=== PATIENT | female | born 1955 | race Caucasian/White ===

== ENCOUNTER → 2020-01-02 | Outpatient (CLI) | payer BC ==
[2020-01-02 12:22] LABS: BASOPHILS % 0.5 % (0.0-2.0); EOSINOPHILS % 3.2 % (0.0-5.0); HEMATOCRIT. 37.1 % (36.0-48.0); HEMOGLOBIN. 12.7 g/dL (12.0-16.0); LYMPHOCYTES % 14.1 % (20.0-50.0); MEAN CORPUSCULAR HEMOGLOBIN 27.9 pg (28.0-32.0); MEAN CORPUSCULAR VOLUME 81.4 fL (81.0-99.0); MEAN PLATELET VOLUME 7.5 fl (7.4-10.4); MONOCYTES % 6.6 % (2.0-8.0); NEUTROPHILS % 75.6 % (40.0-76.0); PLATELET 147 x1000/uL (130-400); RED BLOOD CELL COUNT 4.56 mill/uL (4.2-5.4); RED CELL DISTRIBUTION WIDTH 14.5 % (11.6-14.6)
[2020-01-02 12:30] LABS: CHLORIDE 107 mEq/L (98-107)
[2020-01-02 12:33] LABS: PARTIAL THROMBOPLASTIN TIME 33.7 sec (23.4-31.0); PROTHROMBIN TIME 10.9 sec (9.6-11.0)
[2020-01-02 12:34] LABS: CLARITY URINE CLEAR (CLEAR); COLOR URINE DARK YELLOW (YELLOW); KETONES URINE NEGATIVE (NEGATIVE); LEUKOCYTE ESTERASE URINE 2+ (NEGATIVE); NITRITE URINE NEGATIVE (NEGATIVE); OCCULT BLOOD URINE NEGATIVE (NEGATIVE); PH URINE 5.5 (4.5-8.0); PROTEIN URINE NEGATIVE (NEGATIVE); SPECIFIC GRAVITY URINE 1.029 (1.005-1.030)
== END | disposition home or self-care (01) ==
LOC: PVL 11:24
PROVIDERS: ATTEND Thoracic Surgery (Cardiothoracic Vascular Surgery)
DX: Z20.828 Contact with and (suspected) exposure to other viral communicable diseases (principal); I34.0 Nonrheumatic mitral (valve) insufficiency
CPT/HCPCS: 36415; 71045; 80048; 81003; 83735; 85025; 85610; 85730; 86850; 86900; 86901; 87086; 87426; 93005; 93880; 93970; C9803; U0003

== ENCOUNTER 2020-01-06 05:47 | Inpatient (IN) | payer BC ==
[~2020-01-06] VITALS: Ht 157.5 cm; Wt 74.6 kg
[2020-01-06] VITALS (56 sets, daily range): BP systolic 90–138; BP diastolic 43–75
[~2020-01-06 05:47] MED LIST: CHOL100022 PO; FERR325T6 PO; METF-416 PO; METO100T16 PO; MULT-1146 PO; PROT40 PO; RIVA20TA PO; VITAMIN B12 PO
[2020-01-06] MEDS ORDERED: CEFAZOLIN 2,000 MG in DEXT 5% WATER 100 ML IV SCH (06:00)
[2020-01-06] MEDS ORDERED: NICARDIPINE 50 MG in NS 250 ML IV SCH (06:00)
[2020-01-06] MEDS ORDERED: DEL NIDO ELECTROLYTE-S(PH 7.4) 1,000 ML IV SCH ×2 (06:00)
[2020-01-06] MEDS ORDERED: NOREPINEPHRINE 8 MG in DEXT 5% WATER 242 ML IV SCH (06:00)
[2020-01-06] MEDS ORDERED: EPINEPHRINE 5 MG in DEXT 5% WATER 245 ML IV SCH (06:00)
[2020-01-06] MEDS ORDERED: INSULIN REGULAR (DRIP) 100 UNITS in SODIUM CHLORIDE 0.9% 99 ML IV SCH (06:00)
[2020-01-06] MEDS ORDERED: AMINOCAPROIC ACID 5,000 MG in SODIUM CHLORIDE 0.9% 230 ML IV SCH (06:15)
[2020-01-06] MEDS ORDERED: AMINOCAPROIC ACID 5,000 MG in SODIUM CHLORIDE 0.9% 230 ML IV ONE (06:15)
[2020-01-06] MEDS ORDERED: BACITRACIN 15GM TUBE TOP ONE (06:20)
[2020-01-06] MEDS ORDERED: DOPAMINE 400MG/250ML PREMIX 250 ML IV ONE (06:20)
[2020-01-06] MEDS ORDERED: THROMBIN (BOVINE) 5000 UNITS/VIAL TOP ONE (06:21)
[2020-01-06] MEDS ORDERED: HEPARIN 1000 UNITS/ML 10ML ONE ×4 (06:21→08:09)
[2020-01-06] MEDS ORDERED: BACITRACIN 50,000 UNITS/VIAL ONE (06:21)
[2020-01-06] MEDS ORDERED: PROPOFOL 10MG/ML 100ML 100 ML IV ONE (06:44)
[2020-01-06] MEDS ORDERED: ROCURONIUM BROMIDE 10MG/ML VIAL 5ML IV ONE (06:44)
[2020-01-06] MEDS ORDERED: CEFAZOLIN SODIUM 1000MG/VIAL ONE (07:33)
[2020-01-06] MEDS ORDERED: HYDROMORPHONE HCL/PF 2MG/ML (OR) ONE (07:46)
[2020-01-06] MEDS ORDERED: PHENYLEPHRINE HCL 10 MG/ML 1ML (IV VIAL) IV ONE (08:00)
[2020-01-06] MEDS ORDERED: MAGNESIUM SULFATE 5GM/10ML VIAL IV ONE ×2 (08:00→08:12)
[2020-01-06] MEDS ORDERED: SODIUM BICARBONATE 8.4% 1 MEQ/ML 50ML SYR IV ONE (08:00)
[2020-01-06] MEDS ORDERED: CALCIUM CHLORIDE 1GM/10ML SYR IV ONE ×2 (08:00→10:05)
[2020-01-06] MEDS ORDERED: AMINOCAPROIC ACID 250 MG/ML 20ML VIAL ONE (08:00)
[2020-01-06] MEDS ORDERED: MANNITOL 20% (20GM/100ML) BAG 500ML PREMIX IV ONE (08:00)
[2020-01-06] MEDS ORDERED: LIDOCAINE HCL 2% 5ML SYRINGE IV ONE (08:00)
[2020-01-06] MEDS ORDERED: ALBUMIN HUMAN 25GM/100ML (25%) IV ONE (08:00)
[2020-01-06] MEDS ORDERED: POTASSIUM CHLORIDE 40MEQ/20ML INJ IV ONE (08:12)
[2020-01-06] MEDS ORDERED: PROTAMINE SULFATE 10MG/ML VIAL 25ML IV ONE (10:06)
[2020-01-06] MEDS ORDERED: FUROSEMIDE 100MG/10ML VIAL ONE (10:30)
[2020-01-06] MEDS ORDERED: BUPIVACAINE HCL 0.5% (5MG/ML) 50ML ONE (10:41)
[2020-01-06] MEDS ORDERED: NEOSTIGMINE METHYLSULFATE 1MG/ML 10 ML VIAL ONE (11:09)
[2020-01-06] MEDS ORDERED: KCL 10MEQ/50ML PREMIX 150 ML IV PRN (11:15)
[2020-01-06] MEDS ORDERED: KCL 10MEQ/50ML PREMIX 200 ML IV PRN (11:15)
[2020-01-06] MEDS ORDERED: MAGNESIUM SULFATE 3 GM in DEXT 5% WATER 100 ML IV PRN (11:30)
[2020-01-06] MEDS ORDERED: ALBUMIN HUMAN 25GM/100ML (25%) IV PRN (11:30)
[2020-01-06] MEDS ORDERED: CALCIUM CHLORIDE 3,000 MG in DEXT 5% WATER 250 ML IV PRN (11:30)
[2020-01-06] MEDS ORDERED: SODIUM CHLORIDE 0.9% 500 ML IV PRN (11:30)
[2020-01-06] MEDS ORDERED: ALBUMIN HUMAN 12.5G/250ML (5%) IV PRN (11:30)
[2020-01-06] MEDS ORDERED: MAGNESIUM 1 G PREMIX 100 ML IV PRN (11:30)
[2020-01-06] MEDS ORDERED: EPINEPHRINE 5 MG in DEXT 5% WATER 245 ML IV PRN (11:30)
[2020-01-06] MEDS ORDERED: MAGNESIUM 2 G PREMIX 50 ML IV PRN (11:30)
[2020-01-06] MEDS ORDERED: CEFAZOLIN 1000MG PREMIX 50 ML IV SCH (11:30)
[2020-01-06] MEDS ORDERED: NICARDIPINE 40MG/200ML PREMIX 200 ML IV ONE (11:34)
[2020-01-06 12:01] LABS: BG BASE EXCESS -2.3 mmol/L (-2.0-2.0); BG CARBOXYHEMOGLOBIN 0.3 % (0.5-1.5); BG DEOXYHEMOGLOBIN 1.9 % (0.0-5.0); BG HCO3 ACT 25.4 mmol/L (22.0-26.0); BG METHEMOGLOBIN 0.3 % (0.0-1.5); BG OXYGEN SATURATION 98.1 % (92.0-98.5); BG OXYHEMOGLOBIN 97.5 % (94.0-97.0); BG PCO2 56.6 mmHg (35.0-45.0); BG PO2 137.3 mmHg (75.0-100.0); BG SAMPLE SITE ALINE; BG TOTAL HEMOGLOBIN 12.6 g/dL (12.0-18.0); BG VENT MODE MASK - NRB
[2020-01-06 12:07] LABS: HEMATOCRIT. 34.7 % (36.0-48.0); HEMOGLOBIN. 11.9 g/dL (12.0-16.0); MEAN CORPUSCULAR HEMOGLOBIN 27.7 pg (28.0-32.0); MEAN PLATELET VOLUME 7.6 fl (7.4-10.4); PLATELET 185 x1000/uL (130-400); RED BLOOD CELL COUNT 4.28 mill/uL (4.2-5.4)
[2020-01-06] MEDS: DOPAMINE 400MG/250ML PREMIX 250 ML IV PRN (12:24)
[2020-01-06] MEDS: DEXT 5%/0.45% NACL 1000ML 1,000 ML IV SCH (12:25)
[2020-01-06 12:55] LABS: PHOSPHORUS 3.8 mg/dL (2.5-4.9)
[2020-01-06] MEDS: IPRATROPIUM/ALBUTEROL 0.5-3(2.5)MG/3ML NEB HHN SCH ×3 (13:31→21:18)
[2020-01-06] MEDS: CEFAZOLIN 1000MG PREMIX 50 ML IV SCH ×2 (13:32→21:20)
[2020-01-06 14:33] LABS: PLATELET ESTIMATE NORMAL
[2020-01-06] MEDS ORDERED: POLYVINYL ALCOHOL OPHTH DROPS 15ML LEFTEYE PRN (15:00)
[2020-01-06] MEDS: OXYCODONE HCL/ACETAMINOPHEN 5/325MG TABLET PO PRN (15:19)
[2020-01-06] MEDS ORDERED: IPRATROPIUM/ALBUTEROL 0.5-3(2.5)MG/3ML NEB HHN PRN (15:45)
[2020-01-06] MEDS: ONDANSETRON HCL 4MG/2ML INJ IV PRN ×2 (16:02→19:57)
[2020-01-06] MEDS: DOCUSATE SODIUM 100MG CAPSULE PO SCH (17:00)
[2020-01-06] MEDS: BACITRACIN 15GM TUBE TOP SCH (17:00)
[2020-01-06] MEDS: KETOROLAC 30MG/ML VIAL IV PRN ×2 (17:30→19:58)
[2020-01-06 17:38] LABS: BG BASE EXCESS 0.9 mmol/L (-2.0-2.0); BG CARBOXYHEMOGLOBIN 0.2 % (0.5-1.5); BG HCO3 ACT 25.7 mmol/L (22.0-26.0); BG METHEMOGLOBIN 0.3 % (0.0-1.5); BG OXYHEMOGLOBIN 97.5 % (94.0-97.0); BG PCO2 41.5 mmHg (35.0-45.0); BG PH 7.409 (7.350-7.450); BG PO2 115.8 mmHg (75.0-100.0); BG SAMPLE SITE ALINE; BG TOTAL HEMOGLOBIN 12.1 g/dL (12.0-18.0); BG VENT MODE NASAL CANNULA
[2020-01-06 17:45] LABS: HEMATOCRIT 33.9 % (36.0-48.0); HEMOGLOBIN 11.6 g/dL (12.0-16.0); MEAN CORPUSCULAR HEMOGLOBIN 27.6 pg (28.0-32.0); MEAN CORPUSCULAR VOLUME 80.8 fL (81.0-99.0); PLATELET 159 x1000/uL (130-400); RED BLOOD CELL COUNT 4.19 mill/uL (4.2-5.4); RED CELL DISTRIBUTION WIDTH 14.1 % (11.6-14.6)
[2020-01-06 18:20] LABS: CHLORIDE 107 mEq/L (98-107)
[2020-01-06 18:29] LABS: PHOSPHORUS 2.7 mg/dL (2.5-4.9)
[2020-01-06] MEDS ORDERED: INSULIN REGULAR (DRIP) 100 UNITS in SODIUM CHLORIDE 0.9% 99 ML IV PRN (18:45)
[2020-01-06] MEDS ORDERED: DEXTROSE 50% WATER 50ML SYRINGE IV PRN ×2 (18:45)
[2020-01-06] MEDS: KCL 10MEQ/50ML PREMIX 100 ML IV PRN ×2 (18:51→20:20)
[2020-01-06] MEDS ORDERED: INSULIN REGULAR (DRIP) 100 UNITS in SODIUM CHLORIDE 0.9% 100 ML IV SCH (19:00)
[2020-01-06] MEDS: BLOOD SUGAR DIAGNOSTIC STRIP TEST SCH ×5 (19:09→23:00)
[2020-01-07] VITALS (61 sets, daily range): BP systolic 92–169; BP diastolic 34–72
[2020-01-07] MEDS: IPRATROPIUM/ALBUTEROL 0.5-3(2.5)MG/3ML NEB HHN SCH ×4 (00:26→20:54)
[2020-01-07 00:50] LABS: HEMATOCRIT. 28.4 % (36.0-48.0); HEMOGLOBIN. 9.8 g/dL (12.0-16.0); MEAN CORPUSCULAR HEMOGLOBIN 27.8 pg (28.0-32.0); MEAN CORPUSCULAR VOLUME 80.6 fL (81.0-99.0); MEAN PLATELET VOLUME 7.9 fl (7.4-10.4); PLATELET 130 x1000/uL (130-400); RED BLOOD CELL COUNT 3.53 mill/uL (4.2-5.4); RED CELL DISTRIBUTION WIDTH 14.1 % (11.6-14.6)
[2020-01-07 00:57] LABS: CHLORIDE 107 mEq/L (98-107)
[2020-01-07] MEDS: OXYCODONE HCL/ACETAMINOPHEN 5/325MG TABLET PO PRN ×4 (00:58→18:34)
[2020-01-07 01:03] LABS: PHOSPHORUS 4.4 mg/dL (2.5-4.9)
[2020-01-07] MEDS: BLOOD SUGAR DIAGNOSTIC STRIP TEST SCH ×15 (01:03→20:53)
[2020-01-07] MEDS: KCL 10MEQ/50ML PREMIX 100 ML IV PRN ×4 (01:26→08:10)
[2020-01-07 01:53] LABS: PLATELET ESTIMATE NORMAL
[2020-01-07] MEDS ORDERED: KETOROLAC 15MG/ML VIAL IV SCH ×3 (02:45→09:00)
[2020-01-07] MEDS: DOPAMINE 400MG/250ML PREMIX 250 ML IV PRN (04:20)
[2020-01-07] MEDS: ONDANSETRON HCL 4MG/2ML INJ IV PRN ×4 (04:32→18:35)
[2020-01-07] MEDS: CEFAZOLIN 1000MG PREMIX 50 ML IV SCH ×2 (05:06→14:12)
[2020-01-07 05:42] LABS: HEMATOCRIT. 26.5 % (36.0-48.0); HEMOGLOBIN. 9.1 g/dL (12.0-16.0); MEAN CORPUSCULAR HEMOGLOBIN 27.8 pg (28.0-32.0); MEAN CORPUSCULAR VOLUME 81.5 fL (81.0-99.0); MEAN PLATELET VOLUME 7.9 fl (7.4-10.4); PLATELET 110 x1000/uL (130-400); RED BLOOD CELL COUNT 3.25 mill/uL (4.2-5.4)
[2020-01-07 08:26] LABS: BG BASE EXCESS -1.5 mmol/L (-2.0-2.0); BG CARBOXYHEMOGLOBIN 0.3 % (0.5-1.5); BG DEOXYHEMOGLOBIN 4.5 % (0.0-5.0); BG FRACTION INSPIRED OXYGEN 21; BG HCO3 ACT 23.7 mmol/L (22.0-26.0); BG METHEMOGLOBIN 0.3 % (0.0-1.5); BG OXYGEN SATURATION 95.5 % (92.0-98.5); BG OXYHEMOGLOBIN 94.9 % (94.0-97.0); BG PH 7.369 (7.350-7.450); BG PO2 80.3 mmHg (75.0-100.0); BG SAMPLE SITE ALINE; BG TOTAL HEMOGLOBIN 9.5 g/dL (12.0-18.0); BG VENT MODE ROOM AIR
[2020-01-07 08:29] LABS: PHOSPHORUS 6.2 mg/dL (2.5-4.9)
[2020-01-07] MEDS: BACITRACIN 15GM TUBE TOP SCH ×2 (09:00→17:00)
[2020-01-07] MEDS: FAMOTIDINE 20MG/2ML VIAL IV SCH (09:45)
[2020-01-07] MEDS: DOCUSATE SODIUM 100MG CAPSULE PO SCH ×2 (09:45→17:10)
[2020-01-07] MEDS: DEXT 5%/0.45% NACL 1000ML 1,000 ML IV SCH (12:15)
[2020-01-07] MEDS ORDERED: DEXTROSE 50% WATER 50ML SYRINGE IV PRN (12:45)
[2020-01-07] MEDS ORDERED: INSULIN GLARGINE UD 100 UNITS/ML SYR SUBCUT SCH (13:00)
[2020-01-07] MEDS: INSULIN LISPRO 100 UNITS/ML SUBCUT SCH ×3 (13:14→20:53)
[2020-01-07 14:12] LABS: PLATELET ESTIMATE SLIGHTLY DECREASED
[2020-01-08] VITALS (12 sets, daily range): BP systolic 88–130; BP diastolic 49–77
[2020-01-08] MEDS: IPRATROPIUM/ALBUTEROL 0.5-3(2.5)MG/3ML NEB HHN SCH ×7 (00:28→23:35)
[2020-01-08] MEDS: ONDANSETRON HCL 4MG/2ML INJ IV PRN ×2 (01:39→07:00)
[2020-01-08] MEDS: OXYCODONE HCL/ACETAMINOPHEN 5/325MG TABLET PO PRN ×4 (01:40→19:59)
[2020-01-08] MEDS: BLOOD SUGAR DIAGNOSTIC STRIP TEST SCH ×4 (05:58→21:00)
[2020-01-08] MEDS: INSULIN LISPRO 100 UNITS/ML SUBCUT SCH ×4 (06:21→21:00)
[2020-01-08] MEDS: DOCUSATE SODIUM 100MG CAPSULE PO SCH ×2 (08:47→16:13)
[2020-01-08] MEDS: FAMOTIDINE 20MG/2ML VIAL IV SCH (08:47)
[2020-01-08] MEDS: INSULIN GLARGINE UD 100 UNITS/ML SYR SUBCUT SCH (09:04)
[2020-01-08 09:07] LABS: BASOPHILS % 0.4 % (0.0-2.0); HEMOGLOBIN. 9.2 g/dL (12.0-16.0); LYMPHOCYTES % 9.8 % (20.0-50.0); MEAN CORPUSCULAR HEMOGLOBIN 27.9 pg (28.0-32.0); MEAN CORPUSCULAR VOLUME 82.1 fL (81.0-99.0); MEAN PLATELET VOLUME 8.1 fl (7.4-10.4); MONOCYTES % 6.2 % (2.0-8.0); NEUTROPHILS % 80.6 % (40.0-76.0); PLATELET 124 x1000/uL (130-400); RED BLOOD CELL COUNT 3.29 mill/uL (4.2-5.4); RED CELL DISTRIBUTION WIDTH 14.2 % (11.6-14.6)
[2020-01-08] MEDS: RIVAROXABAN 10 MG TABLET PO SCH (16:37)
[2020-01-08] MEDS ORDERED: BACITRACIN 15GM TUBE TOP SCH (17:00)
[2020-01-09] VITALS (12 sets, daily range): BP systolic 101–140; BP diastolic 49–83
[2020-01-09] MEDS: OXYCODONE HCL/ACETAMINOPHEN 5/325MG TABLET PO PRN ×2 (03:33→12:01)
[2020-01-09] MEDS: IPRATROPIUM/ALBUTEROL 0.5-3(2.5)MG/3ML NEB HHN SCH ×6 (04:19→23:55)
[2020-01-09] MEDS: BLOOD SUGAR DIAGNOSTIC STRIP TEST SCH ×4 (06:23→20:20)
[2020-01-09 07:14] LABS: BASOPHILS % 0.8 % (0.0-2.0); EOSINOPHILS % 5.3 % (0.0-5.0); HEMATOCRIT. 25.5 % (36.0-48.0); HEMOGLOBIN. 8.7 g/dL (12.0-16.0); LYMPHOCYTES % 16.7 % (20.0-50.0); MEAN CORPUSCULAR HEMOGLOBIN 27.6 pg (28.0-32.0); NEUTROPHILS % 69.2 % (40.0-76.0); PLATELET 109 x1000/uL (130-400); RED BLOOD CELL COUNT 3.15 mill/uL (4.2-5.4); RED CELL DISTRIBUTION WIDTH 13.9 % (11.6-14.6)
[2020-01-09] MEDS: INSULIN LISPRO 100 UNITS/ML SUBCUT SCH ×4 (07:16→20:20)
[2020-01-09 08:00] LABS: CHLORIDE 104 mEq/L (98-107)
[2020-01-09] MEDS ORDERED: FUROSEMIDE 40MG/4ML VIAL IVP NR (09:00)
[2020-01-09] MEDS ORDERED: ASPIRIN 81MG TABLET PO SCH (09:00)
[2020-01-09] MEDS ORDERED: MAGNESIUM 2 G PREMIX 50 ML IV NR (09:00)
[2020-01-09] MEDS: DOCUSATE SODIUM 100MG CAPSULE PO SCH ×2 (09:30→17:35)
[2020-01-09] MEDS: FAMOTIDINE 20MG/2ML VIAL IV SCH (09:30)
[2020-01-09] MEDS: FUROSEMIDE 40MG TABLET PO SCH (09:31)
[2020-01-09] MEDS: INSULIN GLARGINE UD 100 UNITS/ML SYR SUBCUT SCH (09:34)
[2020-01-09] MEDS ORDERED: METOPROLOL TARTRATE 25MG TABLET PO NR (14:15)
[2020-01-09] MEDS: POLYETHYLENE GLYCOL 3350 (17GM) 1 DOSE PACK PO SCH (14:31)
[2020-01-09] MEDS: METOPROLOL TARTRATE 25MG TABLET PO SCH ×2 (14:32→17:36)
[2020-01-09] MEDS: RIVAROXABAN 10 MG TABLET PO SCH (17:35)
[2020-01-09] MEDS: IBUPROFEN 400MG TABLET PO PRN (20:19)
[2020-01-10] VITALS (13 sets, daily range): BP systolic 87–148; BP diastolic 57–82
[2020-01-10] MEDS: IPRATROPIUM/ALBUTEROL 0.5-3(2.5)MG/3ML NEB HHN SCH ×5 (04:20→21:04)
[2020-01-10] MEDS: OXYCODONE HCL/ACETAMINOPHEN 5/325MG TABLET PO PRN (04:44)
[2020-01-10] MEDS: BLOOD SUGAR DIAGNOSTIC STRIP TEST SCH ×4 (06:31→20:45)
[2020-01-10] MEDS: INSULIN LISPRO 100 UNITS/ML SUBCUT SCH ×4 (07:20→20:49)
[2020-01-10] MEDS ORDERED: BISACODYL 10MG SUPP PR PRN (09:00)
[2020-01-10] MEDS: FAMOTIDINE 20MG/2ML VIAL IV SCH (09:55)
[2020-01-10] MEDS: LACTULOSE 20G/30ML UDC PO SCH ×3 (09:56→16:44)
[2020-01-10] MEDS: POLYETHYLENE GLYCOL 3350 (17GM) 1 DOSE PACK PO SCH (09:58)
[2020-01-10] MEDS: FUROSEMIDE 40MG TABLET PO SCH (09:58)
[2020-01-10] MEDS: DOCUSATE SODIUM 100MG CAPSULE PO SCH ×2 (09:58→16:44)
[2020-01-10] MEDS: METOPROLOL TARTRATE 25MG TABLET PO SCH ×2 (09:58→16:45)
[2020-01-10] MEDS: INSULIN GLARGINE UD 100 UNITS/ML SYR SUBCUT SCH (10:00)
[2020-01-10] MEDS ORDERED: MAGNESIUM 2 G PREMIX 50 ML IV SCH (12:00)
[2020-01-10] MEDS: RIVAROXABAN 10 MG TABLET PO SCH (16:44)
[2020-01-10] MEDS: IBUPROFEN 400MG TABLET PO PRN ×2 (17:54→22:57)
[2020-01-11] VITALS (8 sets, daily range): BP systolic 78–121; BP diastolic 60–72
[2020-01-11] MEDS: IPRATROPIUM/ALBUTEROL 0.5-3(2.5)MG/3ML NEB HHN SCH ×4 (00:55→13:04)
[2020-01-11] MEDS: IBUPROFEN 400MG TABLET PO PRN ×2 (05:04→10:41)
[2020-01-11] MEDS: BLOOD SUGAR DIAGNOSTIC STRIP TEST SCH ×2 (06:06→11:09)
[2020-01-11 06:52] LABS: BASOPHILS % 0.6 % (0.0-2.0); EOSINOPHILS % 5.9 % (0.0-5.0); HEMATOCRIT. 25.4 % (36.0-48.0); HEMOGLOBIN. 8.8 g/dL (12.0-16.0); LYMPHOCYTES % 24.4 % (20.0-50.0); MEAN CORPUSCULAR HEMOGLOBIN 28.1 pg (28.0-32.0); MEAN CORPUSCULAR VOLUME 81.1 fL (81.0-99.0); MEAN PLATELET VOLUME 7.9 fl (7.4-10.4); MONOCYTES % 9.5 % (2.0-8.0); NEUTROPHILS % 59.6 % (40.0-76.0); PLATELET 160 x1000/uL (130-400); RED BLOOD CELL COUNT 3.13 mill/uL (4.2-5.4); RED CELL DISTRIBUTION WIDTH 13.5 % (11.6-14.6)
[2020-01-11] MEDS: INSULIN LISPRO 100 UNITS/ML SUBCUT SCH ×2 (07:14→12:20)
[2020-01-11] MEDS: FAMOTIDINE 20MG/2ML VIAL IV SCH (08:25)
[2020-01-11] MEDS: FUROSEMIDE 40MG TABLET PO SCH (08:25)
[2020-01-11] MEDS: DOCUSATE SODIUM 100MG CAPSULE PO SCH (08:25)
[2020-01-11] MEDS: METOPROLOL TARTRATE 25MG TABLET PO SCH (08:26)
[2020-01-11] MEDS: POLYETHYLENE GLYCOL 3350 (17GM) 1 DOSE PACK PO SCH (08:26)
[2020-01-11] MEDS: INSULIN GLARGINE UD 100 UNITS/ML SYR SUBCUT SCH (10:42)
[2020-01-11] MEDS ORDERED: POTASSIUM CHLORIDE 20MEQ TABLET SR PO SCH (11:45)
== END 2020-01-11 14:45 | disposition home health service (06) | DRG 219 ==
LOC: OR 05:47 → CVICU 05:48 → EEVIPCON 05:48 → EDUNIT# 07:00 → 3WST 01-07 17:56
PROVIDERS: ADMIT Internal Medicine; ATTEND Thoracic Surgery (Cardiothoracic Vascular Surgery)
PROC: 02RG08Z Replacement of Mitral Valve with Zooplastic Tissue, Open Approach (ICD-10-PCS; principal; 2020-01-06)
PROC: 025 Heart and Great Vessels, Destruction (ICD-10-PCS; 2020-01-06)
PROC: 5A1221Z Performance of Cardiac Output, Continuous (ICD-10-PCS; 2020-01-06)
PROC: 02B70ZK Excision of Left Atrial Appendage, Open Approach (ICD-10-PCS; 2020-01-06)
PROC: B24BZZ4 Ultrasonography of Heart with Aorta, Transesophageal (ICD-10-PCS; 2020-01-06)
DX: I44.0 Atrioventricular block, first degree (principal); J96.00 Acute respiratory failure, unspecified whether with hypoxia or hypercapnia; E87.2 Acidosis; J90 Pleural effusion, not elsewhere classified; I05.0 Rheumatic mitral stenosis; I48.0 Paroxysmal atrial fibrillation; E83.41 Hypermagnesemia; I27.21 Secondary pulmonary arterial hypertension; I51.3 Intracardiac thrombosis, not elsewhere classified; D64.9 Anemia, unspecified; R26.9 Unspecified abnormalities of gait and mobility; R73.9 Hyperglycemia, unspecified; D69.6 Thrombocytopenia, unspecified; Z88.5 Allergy status to narcotic agent; Z98.84 Bariatric surgery status
CPT/HCPCS: 36415; 36600; 71045; 73706; 80048; 80051; 80053; 82330; 82375; 82805; 82962; 83036; 83735; 84100; 84132; 85025; 85027; 85347; 86850; 86900; 86920; 87070; 87075; 88305; 93005; 93306; 94640; 97110; 97116; 97162; 97166; 97530; 97535; C1729; C1751; C1758; J0690; J1170; J1265; J1644; J1815; J1885; J1940; J2370; J2405; J2704; J2710; J2720; J3475; J3480; J3490; J7030; J7040; J7050; J7060; L3908; P9047

== ENCOUNTER 2022-11-06 15:55 | Inpatient (IN) | payer BC ==
[~2022-11-06] VITALS: Ht 157.5 cm; Wt 100.3 kg
[~2022-11-06 15:55] MED LIST changes: -CHOL100022 PO; +FURO-151 PO; +LOSA25TA26 PO; +METF-874 PO; +OXYC-100 PO; +POTA-354 PO; +RIVA10TA PO; -RIVA20TA PO
[2022-11-06] MEDS ORDERED: CLONIDINE 0.1MG TABLET PO PRN (19:45)
[2022-11-06] MEDS ORDERED: MAGNESIUM/ALUMINUM HYDROXIDE/SIMETHICONE 30ML UDC PO PRN (19:45)
[2022-11-06] MEDS ORDERED: DOCUSATE SODIUM 100MG CAPSULE PO PRN (19:45)
[2022-11-06] MEDS ORDERED: NITROGLYCERIN 0.4MG TABLET SL SL PRN (19:45)
[2022-11-06] MEDS ORDERED: GUAIFENESIN 200MG/10ML SUGAR FREE UDC PO PRN (19:45)
[2022-11-06] MEDS ORDERED: ONDANSETRON HCL 4MG/2ML INJ IV PRN (19:45)
[2022-11-06] MEDS ORDERED: METOPROLOL TARTRATE 25MG TABLET PO SCH (19:45)
[2022-11-06 21:00] VITALS: BP 122/73; PULSE 132; RESP 18; TEMP 98
[2022-11-06] MEDS: PANTOPRAZOLE SODIUM 40 MG/VIAL IV SCH (21:55)
[2022-11-06] MEDS: METOPROLOL TARTRATE 100MG TABLET PO SCH (21:56)
[2022-11-06] MEDS: ENOXAPARIN 100MG/ML SYR SUBCUT NR ×2 (21:59→22:00)
[2022-11-06 22:24] VITALS: BP 122/73; PULSE 132; RESP 18; TEMP 98
[2022-11-06] MEDS: TEMAZEPAM 15MG CAPSULE PO PRN (23:23)
[2022-11-06 23:45] LABS: INR 1.1; PROTHROMBIN TIME 11.4 sec (9.6-11.0)
[2022-11-07] VITALS: BP 107/68; PULSE 100; RESP 18; TEMP 100.2
[2022-11-07] MEDS ORDERED: IPRATROPIUM BROMIDE (0.02%) 0.5MG/2.5ML NEB HHN PRN (00:15)
[2022-11-07 04:00] VITALS: BP 124/77; PULSE 95; RESP 20; TEMP 97.8
[2022-11-07] MEDS ORDERED: PANT40SU PO (05:37)
[2022-11-07] MEDS ORDERED: ASPI-1497 PO (05:37)
[2022-11-07] MEDS ORDERED: DULA0.75 SQ (05:37)
[2022-11-07 05:58] LABS: BASOPHILS % 0.5 % (0.0-2.0); EOSINOPHILS % 1.8 % (0.0-5.0); HEMATOCRIT. 31.9 % (36.0-48.0); HEMOGLOBIN. 10.3 g/dL (12.0-16.0); LYMPHOCYTES % 25.9 % (20.0-50.0); MEAN CORPUSCULAR HEMOGLOBIN 24.6 pg (28.0-32.0); MEAN PLATELET VOLUME 8.3 fl (7.4-10.4); MONOCYTES % 8.7 % (2.0-8.0); NEUTROPHILS % 63.1 % (40.0-76.0); PLATELET 227 x1000/uL (130-400); RED CELL DISTRIBUTION WIDTH 15.6 % (11.6-14.6)
[2022-11-07 07:00] LABS: CHLORIDE 110 mEq/L (98-107)
[2022-11-07] MEDS: ENOXAPARIN 100MG/ML SYR SUBCUT SCH ×2 (08:00→21:14)
[2022-11-07 08:06] VITALS: BP 124/78; PULSE 98; RESP 18; TEMP 97.2
[2022-11-07 08:23] LABS: CREATINE KINASE 31 IU/L (26-192); CREATINE KINASE MB FRACTION < 1.0 ng/mL (0.5-3.6); T4 FREE 1.27 ng/dL (0.76-1.46); TOTAL IRON BINDING CAPACITY 339 ug/dL (250-450)
[2022-11-07] MEDS: METOPROLOL TARTRATE 100MG TABLET PO SCH ×2 (08:36→21:00)
[2022-11-07] MEDS: ASPIRIN 81MG EC TABLET PO SCH (08:36)
[2022-11-07] MEDS ORDERED: LOSARTAN POTASSIUM 50 MG TABLET PO SCH (09:00)
[2022-11-07] MEDS ORDERED: CLOPIDOGREL 75MG TABLET PO SCH (09:00)
[2022-11-07 09:04] LABS: FERRITIN 67 ng/mL (10-291)
[2022-11-07 09:09] LABS: VITAMIN B12 SERUM 1511 pg/mL (211-911)
[2022-11-07] MEDS: PANTOPRAZOLE SODIUM 40 MG/VIAL IV SCH (09:15)
[2022-11-07 11:50] VITALS: BP 107/74; RESP 18; TEMP 98.8
[2022-11-07] MEDS: POTASSIUM CHLORIDE 20MEQ TABLET SR PO SCH (12:20)
[2022-11-07 16:22] VITALS: BP 113/80; PULSE 97; RESP 18; TEMP 98.6
[2022-11-07 17:09] LABS: CLARITY URINE CLOUDY (CLEAR); COLOR URINE YELLOW (YELLOW); KETONES URINE TRACE (NEGATIVE); LEUKOCYTE ESTERASE URINE 3+ (NEGATIVE); NITRITE URINE NEGATIVE (NEGATIVE); OCCULT BLOOD URINE NEGATIVE (NEGATIVE); PH URINE 5.5 (4.5-8.0); PROTEIN URINE TRACE (NEGATIVE); SPECIFIC GRAVITY URINE 1.021 (1.005-1.030)
[2022-11-07 17:41] LABS: *AMPHETAMINES SCREEN URINE NEGATIVE (NEGATIVE); *BARBITURATES SCREEN URINE NEGATIVE (NEGATIVE); *BENZODIAZEPINES SCREEN URINE NEGATIVE (NEGATIVE); *COCAINE SCREEN URINE NEGATIVE (NEGATIVE); CANNABINOID URINE SCREEN NEGATIVE (NEGATIVE); METHADONE URINE SCREEN NEGATIVE (NEGATIVE); OPIATES URINE SCREEN NEGATIVE (NEGATIVE); PHENCYCLIDINE URINE SCREEN NEGATIVE (NEGATIVE)
[2022-11-07 17:51] LABS: CREATINE KINASE 26 IU/L (26-192); CREATINE KINASE MB FRACTION < 1.0 ng/mL (0.5-3.6)
[2022-11-07 20:00] VITALS: BP 99/70; PULSE 96; RESP 18; TEMP 96.8
[2022-11-07 23:52] LABS: CREATINE KINASE 23 IU/L (26-192); CREATINE KINASE MB FRACTION < 1.0 ng/mL (0.5-3.6)
[2022-11-08] VITALS (9 sets, daily range): BP systolic 110–126; BP diastolic 58–83; PULSE 50–105; RESP 15–20; TEMP 96.5–100.4
[2022-11-08] MEDS: ENOXAPARIN 100MG/ML SYR SUBCUT SCH (08:10)
[2022-11-08] MEDS: POTASSIUM CHLORIDE 20MEQ TABLET SR PO SCH (08:13)
[2022-11-08] MEDS: ASPIRIN 81MG EC TABLET PO SCH (08:13)
[2022-11-08] MEDS: METOPROLOL TARTRATE 100MG TABLET PO SCH ×2 (08:14→21:08)
[2022-11-08] MEDS: FAMOTIDINE 20MG/2ML VIAL IV SCH ×2 (08:47→20:52)
[2022-11-08] MEDS ORDERED: ENOXAPARIN 100MG/ML SYR SUBCUT SCH (20:00)
[2022-11-08] MEDS: TEMAZEPAM 15MG CAPSULE PO PRN (22:20)
[2022-11-09] VITALS (7 sets, daily range): BP systolic 104–119; BP diastolic 57–79; PULSE 72–98; RESP 17–22; TEMP 97–98.4
[2022-11-09] MEDS ORDERED: DEXAMETHASONE 4MG/ML 1ML VIAL ONE (07:30)
[2022-11-09] MEDS ORDERED: ONDANSETRON HCL 4MG/2ML INJ ONE (07:30)
[2022-11-09] MEDS ORDERED: FENTANYL CITRATE/PF 50MCG/ML 2ML VIAL ONE ×3 (07:31→12:33)
[2022-11-09] MEDS ORDERED: PROPOFOL 200MG/20ML VIAL IV ONE (07:31)
[2022-11-09] MEDS ORDERED: MIDAZOLAM HCL 2 MG/2 ML VIAL ONE ×3 (07:32→12:20)
[2022-11-09] MEDS ORDERED: LIDOCAINE HCL 1% 10 MG/ML 10ML VIAL ONE ×2 (07:38→09:14)
[2022-11-09] MEDS ORDERED: IODIXANOL 320MG/ML 100 ML BOTTLE IV ONE (07:38)
[2022-11-09] MEDS ORDERED: DOBUTAMINE 250MG PREMIX 0 ML IV ONE (07:39)
[2022-11-09] MEDS ORDERED: HEPARIN 1000 UNITS/ML 10ML ONE (07:48)
[2022-11-09] MEDS ORDERED: ROCURONIUM BROMIDE 10MG/ML VIAL 5ML IV ONE (09:08)
[2022-11-09] MEDS ORDERED: HYDROMORPHONE HCL/PF 2MG/ML CPJ IV PRN (09:45)
[2022-11-09] MEDS ORDERED: LABETALOL 5MG/ML SYR 20 MG/4 ML SYRINGE IV PRN (09:45)
[2022-11-09] MEDS ORDERED: ONDANSETRON HCL 4MG/2ML INJ IV PRN (09:45)
[2022-11-09] MEDS ORDERED: MEPERIDINE HCL/PF 25MG/ML CPJ IV PRN (09:45)
[2022-11-09] MEDS ORDERED: GLYCOPYRROLATE 0.2 MG/ML 2ML VIAL ONE ×2 (11:12)
[2022-11-09] MEDS ORDERED: NEOSTIGMINE METHYLSULFATE 1MG/ML 10 ML VIAL ONE (11:12)
[2022-11-09] MEDS ORDERED: ATROPINE SULFATE 1MG/10ML SYR IV PRN (13:30)
[2022-11-09] MEDS: METOPROLOL TARTRATE 100MG TABLET PO SCH ×2 (15:36→20:48)
[2022-11-09] MEDS: FAMOTIDINE 20MG/2ML VIAL IV SCH ×2 (15:36→20:48)
[2022-11-09] MEDS: POTASSIUM CHLORIDE 20MEQ TABLET SR PO SCH (15:37)
[2022-11-09] MEDS: TEMAZEPAM 15MG CAPSULE PO PRN (20:48)
[2022-11-10] VITALS: BP 122/70; PULSE 75; RESP 21; TEMP 99.3
[2022-11-10] MEDS: ACETAMINOPHEN 325MG TABLET PO PRN ×2 (02:26→10:24)
[2022-11-10 04:00] VITALS: BP 116/57; PULSE 72; RESP 18; TEMP 98.1
[2022-11-10 07:27] LABS: BASOPHILS % 0.1 % (0.0-2.0); HEMATOCRIT. 30.9 % (36.0-48.0); HEMOGLOBIN. 10.2 g/dL (12.0-16.0); LYMPHOCYTES % 7.8 % (20.0-50.0); MEAN CORPUSCULAR HEMOGLOBIN 25.3 pg (28.0-32.0); MEAN CORPUSCULAR VOLUME 76.8 fL (81.0-99.0); MEAN PLATELET VOLUME 8.3 fl (7.4-10.4); MONOCYTES % 5.3 % (2.0-8.0); NEUTROPHILS % 86.8 % (40.0-76.0); PLATELET 245 x1000/uL (130-400); RED BLOOD CELL COUNT 4.02 mill/uL (4.2-5.4); RED CELL DISTRIBUTION WIDTH 16.1 % (11.6-14.6)
[2022-11-10 07:41] LABS: CHLORIDE 110 mEq/L (98-107)
[2022-11-10 08:00] VITALS: BP 138/77; PULSE 75; RESP 22; TEMP 97.6
[2022-11-10] MEDS: POTASSIUM CHLORIDE 20MEQ TABLET SR PO SCH (10:22)
[2022-11-10] MEDS: FAMOTIDINE 20MG/2ML VIAL IV SCH (10:22)
[2022-11-10] MEDS: METOPROLOL TARTRATE 100MG TABLET PO SCH (10:23)
[2022-11-10 10:29] VITALS: BP 118/73; PULSE 66; TEMP 98.6; O2SAT 96
[2022-11-10 12:00] VITALS: BP 135/79; PULSE 79; RESP 16; TEMP 98
== END 2022-11-10 14:30 | disposition home or self-care (01) | DRG 273 ==
LOC: 8WST 19:27 → 3WST 11-09 15:15
PROVIDERS: ADMIT Hospitalist; ATTEND Hospitalist
PROC: 02583ZZ Destruction of Conduction Mechanism, Percutaneous Approach (ICD-10-PCS; principal; 2022-11-09)
PROC: 4A0234Z Measurement of Cardiac Electrical Activity, Percutaneous Approach (ICD-10-PCS; 2022-11-09)
DX: I48.4 Atypical atrial flutter (principal); I21.A1 Myocardial infarction type 2; Z68.41 Body mass index [BMI] 40.0-44.9, adult; I47.1 Supraventricular tachycardia; I10 Essential (primary) hypertension; I27.20 Pulmonary hypertension, unspecified; I48.0 Paroxysmal atrial fibrillation; D50.9 Iron deficiency anemia, unspecified; I05.0 Rheumatic mitral stenosis; E66.01 Morbid (severe) obesity due to excess calories; E11.9 Type 2 diabetes mellitus without complications; Z95.2 Presence of prosthetic heart valve; Z79.02 Long term (current) use of antithrombotics/antiplatelets; Z79.82 Long term (current) use of aspirin; Z87.891 Personal history of nicotine dependence; Z95.3 Presence of xenogenic heart valve; Z98.84 Bariatric surgery status
CPT/HCPCS: 36415; 71045; 80048; 80053; 80305; 81003; 82550; 82553; 82607; 82728; 82746; 82962; 83540; 83550; 83735; 84439; 84443; 84484; 85025; 93005; 93306; 93970; C9113; J1100; J1250; J1644; J1650; J2250; J2405; J2704; J2710; J3010; J3490; Q9967